=== PATIENT | male | born 1995 | race American Indian/Alaskan Native ===

== ENCOUNTER 2019-06-17 11:12 | Emergency (ER) | payer SELFPAY ==
[2019-06-17 11:23] VITALS: BP 115/71
--- NOTE | 2019-06-17 11:25 | Event Note ---
ED Screening Note Date of service: 06/17/19 Time: 11:22 ED Screening Note: Pt complains of cough and congestion and sore throat x 2 days abnormal breath sounds noted on exam This initial assessment/diagnostic orders/clinical plan/treatment(s) is/are subject to change based on patients health status, clinical progression and re- assessment by fellow clinical providers in the ED. Further treatment and workup at subsequent clinical providers discretion. Patient/guardian urged not to elope from the ED as their condition may be serious if not clinically assessed and managed. Initial orders include: ACC CXR
--- NOTE | 2019-06-17 11:55 | XRay Report ---
CHEST 2 VIEWS INDICATION: cough, abnormal breath sounds. COMPARISON: None. FINDINGS: Support devices: None. Heart: Within normal limits. Lungs/Pleura: No acute air space or interstitial disease. No significant pleural effusion. IMPRESSION: No acute findings. Signer Name: Salty Alexandra MD Signed: 06/17/2019 11:51 AM Workstation Name: [id number]
[2019-06-17] MEDS ORDERED: ACETAMINOPHEN 325 MG TAB PO ONE (12:26)
--- NOTE | 2019-06-17 13:20 | Emergency Department Report ---
ED General Adult HPI - General Chief complaint: Upper Respiratory Infection Stated complaint: FLU LIKE SYMPTOMS Time Seen by Provider: 06/17/19 11:22 Source: patient Mode of arrival: Ambulatory Limitations: No Limitations - History of Present Illness Initial comments: 23 yo M pt complains of cough, congestion, and body aches x 2 days. He denies any chest pain, SOB, hemoptysis, smoking or N/V/D. States positive contact with the flu at work. He states cough is productive of green sputum. He reports theraflu helps some with his symptoms. He also deneis any hx of asthma -: Sudden - Related Data Previous Rx's Medication Instructions Recorded Last Taken Type Albuterol Sulfate [Proventil Hfa] 6.7 gm IH Q6H PRN #1 hfa.aer.ad 06/17/19 Unknown Rx Benzonatate 200 mg PO TID PRN #30 capsule 06/17/19 Unknown Rx Prednisone [predniSONE 5 mg (6-Day 5 mg PO .TAPER #1 tab.ds.pk 06/17/19 Unknown Rx Pack, 21 Tabs)] Allergies Allergy/AdvReac Type Severity Reaction Status Date / Time No Known Allergies Allergy Unverified 06/17/19 11:17 ED Review of Systems ROS: Stated complaint: FLU LIKE SYMPTOMS Other details as noted in HPI Constitutional: chills, fever. denies: malaise ENT: throat pain Respiratory: cough. denies: orthopnea, shortness of breath, SOB with exertion Cardiovascular: denies: chest pain, palpitations, dyspnea on exertion Gastrointestinal: denies: abdominal pain, nausea, vomiting, diarrhea Genitourinary: denies: urgency, dysuria Musculoskeletal: denies: back pain, joint swelling, arthralgia Skin: denies: rash, lesions Neurological: denies: headache Psychiatric: denies: anxiety, depression ED Past Medical Hx - Social History Smoking Status: Never Smoker Substance Use Type: None - Medications Home Medications: Home Medications Medication Instructions Recorded Confirmed Last Taken Type Albuterol Sulfate [Proventil Hfa] 6.7 gm IH Q6H PRN #1 hfa.aer.ad 06/17/19 Unknown Rx Benzonatate 200 mg PO TID PRN #30 capsule 06/17/19 Unknown Rx Prednisone [predniSONE 5 mg (6-Day 5 mg PO .TAPER #1 tab.ds.pk 06/17/19 Unknown Rx Pack, 21 Tabs)] ED Physical Exam - General Limitations: No Limitations General appearance: alert, in no apparent distress - Head Head exam: Present: atraumatic, normocephalic - Eye Eye exam: Present: normal appearance - ENT ENT exam: Present: mucous membranes moist - Neck Neck exam: Present: normal inspection - Respiratory Respiratory exam: Present: wheezes, rhonchi. Absent: respiratory distress, stridor, chest wall tenderness - Cardiovascular Cardiovascular Exam: Present: regular rate, normal rhythm. Absent: systolic murmur, diastolic murmur, rubs, gallop - GI/Abdominal GI/Abdominal exam: Present: soft, normal bowel sounds. Absent: distended, tenderness - Extremities Exam Extremities exam: Present: normal inspection - Back Exam Back exam: Present: normal inspection - Neurological Exam Neurological exam: Present: alert, oriented X3 - Psychiatric Psychiatric exam: Present: normal affect, normal mood - Skin Skin exam: Present: warm, dry, intact, normal color. Absent: rash ED Course Vital Signs 06/17/19 11:21 Temperature 100.3 F H Pulse Rate 91 H Respiratory 16 Rate Blood Pressure 115/71 O2 Sat by Pulse 96 Oximetry ED Medical Decision Making - Radiology Data Radiology results: report reviewed CHEST 2 VIEWS INDICATION: cough, abnormal breath sounds. COMPARISON: None. FINDINGS: Support devices: None. Heart: Within normal limits. Lungs/Pleura: No acute air space or interstitial disease. No significant pleural effusion. IMPRESSION: No acute findings. - Medical Decision Making 23 yo M pt complains of cough, congestion, and body aches x 2 days. He denies any chest pain, SOB, or hemoptysis. Ronchi and mild wheezing noted on exam. Low grade fever of 100.3 noted, vitals otherwise are wnl. Pt given a dose of tylenol. CXR is negative for pneumonia. Pt is well appearing and nontoxic. He is stable for discharge home with treatment for viral bronchitis. Recommend f/u with PCP in 3-5 days. Discussed strict return precautions in great detail with pt who verbalizes understanding. Critical care attestation.: If time is entered above; I have spent that time in minutes in the direct care of this critically ill patient, excluding procedure time. ED Disposition Clinical Impression: Acute viral bronchitis Disposition: - TO HOME OR SELFCARE Is pt being admited?: No Condition: Stable Instructions: Acute Bronchitis (ED) Prescriptions: Benzonatate 200 mg PO TID PRN #30 capsule PRN Reason: Cough Prednisone [predniSONE 5 mg (6-Day Pack, 21 Tabs)] 5 mg PO .TAPER #1 tab.ds.pk Albuterol Sulfate [Proventil Hfa] 6.7 gm IH Q6H PRN #1 hfa.aer.ad PRN Reason: Wheezing Referrals: PRIMARY CARE, [Referring] - 3-5 Days
== END 2019-06-17 13:20 | disposition home or self-care (01) ==
LOC: ED 11:12
DX: J20.9 Acute bronchitis, unspecified (principal); Z79.899 Other long term (current) drug therapy
CPT/HCPCS: 71046; 99283